=== PATIENT | male | born 1985 | race African-American/Black ===

== ENCOUNTER 2018-12-29 18:04 | Emergency (ER) | payer OTHER ==
[2018-12-29] MEDS ORDERED: Adacel (T-DAP) 0.5 ML SYRINGE ONE (19:27)
== END 2018-12-29 19:33 | disposition home or self-care (01) ==
LOC: ERS 18:04
DX: S80.811A Abrasion, right lower leg, initial encounter (principal); W21.05XA Struck by basketball, initial encounter; Y93.67 Activity, basketball; Y99.8 Other external cause status
CPT/HCPCS: 90471; 90715

== ENCOUNTER 2021-08-03 07:23 | Emergency (ER) | payer OTHER | END 2021-08-03 08:22 | disposition home or self-care (01) | LOC: ERS 07:23 | DX: K04.7 Periapical abscess without sinus (principal) | CPT/HCPCS: 99282 ==